=== PATIENT | male | born 1995 | race Caucasian/White ===

== ENCOUNTER 2017-01-09 18:18 | Inpatient (IN) | payer BC ==
[~2017-01-09] VITALS: Ht 175.3 cm; Wt 77.1 kg
--- NOTE | 2017-01-09 18:27 | NUR ---
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 PT ALSO COMPLAINS OF CHEST TIGHTNESS. PT HAS AICD AND PACEMAKER. PT AMBULATORY ALERT ORIENTED. PLACED ON MONITOR. VSS. AWAITING MD ORDER.
--- NOTE | 2017-01-09 18:30 | NUR ---
LAC #18 IV ACCESS. BLOOD SAMPLE COLLECTED SENT TO LAB
[2017-01-09 18:58] LABS: BASOPHILS # (AUTO) 0.1 /CMM (0.0-0.2); BASOPHILS % (AUTO) 2.4 % (0.0-2.0); EOSINOPHILS % (AUTO) 0.2 % (0.0-6.0); HEMATOCRIT 44 % (39-51); HEMOGLOBIN 14.5 g/dL (13.5-17.5); LYMPHOCYTES # (AUTO) 0.2 /CMM (0.8-4.8); LYMPHOCYTES % (AUTO) 3.4 % (20.0-44.0); MEAN CORPUSCULAR HEMOGLOBIN 25 PG (26.0-33.0); MEAN CORPUSCULAR HGB CONC 33 g/dl (31.0-36.0); MEAN CORPUSCULAR VOLUME 75 fL (80-96); MONOCYTES # (AUTO) 0.6 /CMM (0.1-1.30); MONOCYTES % (AUTO) 9.8 % (2.0-12.0); NEUTROPHILS # (AUTO) 5.2 /CMM (1.8-8.9); NEUTROPHILS % (AUTO) 84.2 % (43.0-81.0); PLATELET COUNT (AUTO) 131 /CMM (150-450); RDW COEFFICIENT OF VARIATION 14.6 (11.5-15.0); RED BLOOD CELL COUNT(AUTO) 5.91 MIL/uL (4.5-6.0); WHITE BLOOD COUNT (AUTO) 6.1 K/uL (4.3-11.0)
[2017-01-09] MEDS ORDERED: LEVOFLOXACIN 750 MG /D5W 150ML 150 ML IV ONE ×2 (19:00→19:03)
[2017-01-09] MEDS ORDERED: IV NS 0.9% 500 ML BAG IV ONE (19:00)
[2017-01-09] MEDS ORDERED: IV SET PRIMARY PUMP SET 1 EA INFUS.SET MC ONE ×2 (19:04→23:32)
[2017-01-09] MEDS ORDERED: IV NS 0.9% 500 ML IV ONE (19:04)
[2017-01-09 19:08] LABS: CALCIUM, SERUM 9.5 mg/dL (8.5-10.1); CARBON DIOXIDE 29 mmol/L (21-32); CHLORIDE 95 mmol/L (98-107); CREATININE 1.1 mg/dL (0.6-1.3); GFR 83 mL/min (>60); GLUCOSE 122 mg/dL (74-106); POTASSIUM 3.3 mmol/L (3.5-5.1); SODIUM SERUM 133 mmol/L (136-145); UREA NITROGEN, BLOOD 19 mg/dL (7-18)
[2017-01-09 19:14] LABS: ALANINE AMINOTRANSFERASE 28 U/L (12-78); ALBUMIN 4.5 g/dL (3.4-5.0); ALKALINE PHOSPHATASE 191 U/L (46-116); ASPARTATE AMINOTRANSFERASE 39 U/L (15-37); BILIRUBIN,DIRECT 0.8 mg/dL (0.0-0.2); BILIRUBIN,TOTAL 2.7 mg/dL (0.2-1.0); TOTAL PROTEIN, SERUM 8.9 g/dL (6.4-8.2)
--- NOTE | 2017-01-09 19:15 | NUR ---
PT REPORT RECIEVED FROM DORA DEL TORO, PT IN BED AND STATES HE IS FEELING BETTER, PT FAMILY AT BEDSIDE MD MADE AWARE WILL CONTINUE TO MONITOR.
--- NOTE | 2017-01-09 19:15 | NUR ---
GAVE REPORT TO GIANNA DEL TORO FOR CHANGE OF SHIFT.
[2017-01-09 19:16] LABS: TROPONIN I < 0.017 ng/mL (0.00-0.056)
[2017-01-09 19:25] LABS: LACTIC ACID 0.6 mmol/L (0.4-2.0)
--- NOTE | 2017-01-09 19:55 | NUR ---
CALLED NURSING SUP. FOR TELE BED
[2017-01-09 19:57] LABS: INR 1.1 (0.87-1.13); PROTHROMBIN TIME 11.8 SECS (9.5-12.7)
--- NOTE | 2017-01-09 20:46 | NUR ---
EPIC PAGED, ENTRY LEVEL ADMINISTRATIVE ASSISTANT
[2017-01-09] MEDS ORDERED: POTASSIUM CHLORIDE 20 MEQ TAB.PRT.SR PO ONE ×2 (20:59→21:00)
--- NOTE | 2017-01-09 21:08 | NUR ---
PT STARTED TO VOMIT S/P TAKING THE POTASSIUM, MADE AWARE PT STATES HE IS FEELING BETTER NOW, WILL CONTINUE TO MONITOR.
--- NOTE | 2017-01-09 21:55 | NUR ---
BUDGET DIRECTOR INITIAL NOTE RECEIVED PT FROM EMERGENCY ROOM VIA GURNEY BUT ABLE TO TRANSFER SELF TO BED. A/OX4 AND ABLE TO MAKE NEEDS KNOWN. FAMILY AT BEDSIDE. ON 2L OF O2 AND SATING WELL. NO C/O OF CHEST PAIN OR SOB. NO ACUTE DISTRESS NOTED. VITAL SIGNS WNL. ALL SAFETY MEASURES IN PLACE. CALL LIGHT WITHIN REACH AT ALL TIMES. WILL CONTINUE TO MONITOR.
[2017-01-09] MEDS ORDERED: POTA-88 PO (22:29)
[2017-01-09] MEDS ORDERED: CETI-355 PO (22:29)
[2017-01-09] MEDS ORDERED: ETHA25TA4 PO (22:29)
[2017-01-09] MEDS ORDERED: METO-304 PO (22:29)
[2017-01-09] MEDS ORDERED: CYAN100071 PO (22:29)
[2017-01-09] MEDS ORDERED: RANI150C4 PO (22:29)
[2017-01-09] MEDS ORDERED: LEVO125T PO (22:29)
[2017-01-09] MEDS ORDERED: ESCI10TA PO (22:29)
[2017-01-09] MEDS ORDERED: MONT10TA22 PO (22:29)
[2017-01-09] MEDS ORDERED: IV NS 0.9% 1,000 ML IV PRN (23:05)
[2017-01-09] MEDS ORDERED: MORPHINE SULFATE INJ 2 MG/ML DISP.SYRIN IV PRN (23:30)
[2017-01-09] MEDS ORDERED: ACETAMINOPHEN 325 MG TABLET PO PRN (23:30)
[2017-01-09] MEDS ORDERED: MAG HYDROX/AL HYDROX/SIMETH 30 ML UDC PO PRN (23:30)
[2017-01-09] MEDS ORDERED: Z GUARD REMEDY 2 OZ OINT TP PRN (23:30)
[2017-01-09] MEDS ORDERED: MAGNESIUM HYDROXIDE 30 ML UDC PO PRN (23:30)
[2017-01-09] MEDS ORDERED: ONDANSETRON HCL/PF 4 MG/2 ML VIAL IVP PRN (23:30)
[2017-01-09] MEDS ORDERED: HYDROCODONE/APAP 5/325MG 1 EACH TABLET PO PRN (23:30)
[2017-01-09] MEDS ORDERED: ZOLPIDEM TARTRATE 5 MG TABLET PO PRN (23:30)
[2017-01-09] MEDS ORDERED: IV NS 0.9% 1,000 ML ONE (23:32)
[2017-01-09] MEDS ORDERED: ACETAMINOPHEN 325 MG TABLET ONE (23:39)
[2017-01-10] VITALS: BP 101/45
[2017-01-10] MEDS ORDERED: ALPRAZOLAM 0.25 MG TABLET PO PRN (03:30)
[2017-01-10] MEDS ORDERED: AZITHROMYCIN 250 MG TABLET PO SCH (03:30)
[2017-01-10 04:00] VITALS: BP 102/46
[2017-01-10] MEDS ORDERED: AZITHROMYCIN 250 MG TABLET ONE (04:53)
--- NOTE | 2017-01-10 06:30 | NUR ---
PEDIATRIC NEPHROLOGIST CLOSING NOTE PT REMAINED STABLE DURING SHIFT. NO ACUTE DISTRESS NOTED. ALL SAFETY MEASURES IN PLACE. CALL LIGHT WITHIN EASY REACH. NO C/O PAIN OR DISCOMFORT NOTED. WILL ENDORSE TO NEXT SHIFT FOR CARMELA.
--- NOTE | 2017-01-10 07:10 | NUR ---
CHIEF BUSINESS OFFICER NOTES PATIENT IN BED, AWAKE. A/O X4. ON TELE MONITOR PACING HR 72. BREATHING EVEN AND NON LABORED. ON OXYGEN AT 2L/MIN VIA NC, NO SOB NOTED. IV IN LEFT AC G18 PATENT AND INTACT, FLUSHES WELL. IV NS INFUSING AT 75MLLHR. NO C/O PAIN AT THIS TIME. CALL LIGHT WITHIN REACH. WILL CONT TO MONITOR.
[2017-01-10 08:00] VITALS: BP 108/49
[2017-01-10 08:41] LABS: EOSINOPHILS % (AUTO) 0.7 % (0.0-6.0); HEMATOCRIT 40 % (39-51); HEMOGLOBIN 13.2 g/dL (13.5-17.5); LYMPHOCYTES # (AUTO) 0.1 /CMM (0.8-4.8); LYMPHOCYTES % (AUTO) 4.3 % (20.0-44.0); MEAN CORPUSCULAR HEMOGLOBIN 25 PG (26.0-33.0); MEAN CORPUSCULAR HGB CONC 33 g/dl (31.0-36.0); MEAN CORPUSCULAR VOLUME 76 fL (80-96); MONOCYTES # (AUTO) 0.6 /CMM (0.1-1.30); MONOCYTES % (AUTO) 17.9 % (2.0-12.0); NEUTROPHILS # (AUTO) 2.6 /CMM (1.8-8.9); NEUTROPHILS % (AUTO) 77.1 % (43.0-81.0); PLATELET COUNT (AUTO) 104 /CMM (150-450); RDW COEFFICIENT OF VARIATION 15.7 (11.5-15.0); RED BLOOD CELL COUNT(AUTO) 5.31 MIL/uL (4.5-6.0); WHITE BLOOD COUNT (AUTO) 3.4 K/uL (4.3-11.0)
[2017-01-10 08:42] LABS: CALCIUM, SERUM 9.3 mg/dL (8.5-10.1); CREATININE 0.9 mg/dL (0.6-1.3); MAGNESIUM 2.1 mg/dL (1.8-2.4); PHOSPHORUS 3.5 mg/dL (2.5-4.9); POTASSIUM 4.1 mmol/L (3.5-5.1)
[2017-01-10] MEDS ORDERED: OSELTAMIVIR PHOSPHATE 75 MG CAPSULE PO SCH (09:00)
[2017-01-10] MEDS ORDERED: Ranitidine Hcl 150 MG PO SCH (09:00)
[2017-01-10] MEDS ORDERED: ETHACRYNIC ACID 25 MG TABLET PO SCH ×2 (09:00→09:39)
[2017-01-10] MEDS ORDERED: cetrizine 10 MG TABLET PO SCH ×2 (09:00→22:00)
[2017-01-10] MEDS ORDERED: CYANOCOBALAMIN 500 MCG TABLET PO SCH (09:00)
[2017-01-10] MEDS ORDERED: METOPROLOL SUCCINATE 50 MG TAB.SR.24H PO SCH (09:00)
[2017-01-10] MEDS ORDERED: LEVOTHYROXINE SODIUM 125 MCG TABLET PO SCH (09:00)
[2017-01-10 09:31] VITALS: BP 108/49
[2017-01-10] MEDS: POTASSIUM CL 10 MEQ PO SCH ×2 (10:11→13:54)
[2017-01-10] MEDS ORDERED: AZIT250T6 PO (12:55)
--- NOTE | 2017-01-10 13:03 | NUR ---
PATIENT IS SEEN BY DR. DHILLON TODAY, PATIENT TO BE DISCHARGED HOME ORDERED.
--- NOTE | 2017-01-10 14:09 | NUR ---
MS RN DISCHARGED PATIENT HAS BEEN CLEARED FOR DISCHARGE HOME BY . PATIENT IS AMBULATORY, V/S REMAINS STABLE. NO EPISODE OF SOB. SKIN INTACT. DISCHARGE INSTRUCTION GIVEN TO THE PATIENT, VERBALIZED UNDERSTANDING. IV IN LEFT AC REMOVED, GAUZE APPLIED, NO BLEEDING NOTED. BELONGINGS CHECKED AND HOME MEDICATIONS SEND WITH THE PATIENT UPON DC. PATIENT LEFT HOSP IN STABLE CONDITION VIA PRIVATE CAR, ACCOMPANIED BY HIS FAMILY.
[2017-01-10] MEDS ORDERED: MONTELUKAST SODIUM (10MG) 10 MG TABLET PO SCH (22:00)
== END 2017-01-10 13:44 | disposition home or self-care (01) | DRG 202 ==
LOC: ER 18:18 → TELE1 21:42 → MEDSG1 01-10 10:42
PROVIDERS: ADMIT Internal Medicine; ATTEND Internal Medicine
DX: J20.9 Acute bronchitis, unspecified (principal); E87.1 Hypo-osmolality and hyponatremia; Z95.810 Presence of automatic (implantable) cardiac defibrillator; Z95.2 Presence of prosthetic heart valve; J32.9 Chronic sinusitis, unspecified; E03.9 Hypothyroidism, unspecified; E87.6 Hypokalemia; I50.9 Heart failure, unspecified; J06.9 Acute upper respiratory infection, unspecified; Z98.890 Other specified postprocedural states
CPT/HCPCS: 36415; 71010-TC; 80048-TC; 80061-TC; 80076-TC; 83605-TC; 83735-TC; 83880; 84100-TC; 84484-TC; 85025-TC; 85730-TC; 86850-TC; 87040-TC; 87081-TC; 87400; 93307-TC; A4606; J1956; J7030; J7040; Z7610